=== PATIENT | male | born 2000 | race Caucasian/White ===

== ENCOUNTER 2022-11-09 00:21 | Emergency (ER) | payer SELFPAY ==
[~2022-11-09] VITALS: Ht 177.8 cm; Wt 61.2 kg
--- NOTE | 2022-11-09 00:51 | NUR ---
seen and examined by Dr. Dow
[2022-11-09] MEDS ORDERED: IBUPROFEN 600 MG TABLET PO ONE (01:00)
[2022-11-09] MEDS ORDERED: IBUPROFEN 600 MG TABLET ONE (01:12)
--- NOTE | 2022-11-09 01:14 | NUR ---
Ct in process
[2022-11-09 01:15] LABS: *BILIRUBIN,URIN NEGATIVE (NEGATIVE); *BLOOD, URINE NEGATIVE (NEGATIVE); *CLARITY,URINE CLEAR (CLEAR); *COLOR,URINE YELLOW (YELLOW); *KETONES,URINE NEGATIVE (NEGATIVE); LEUKOCYTE ESTERASE ,URINE NEGATIVE (NEGATIVE); NITRITE, URINE NEGATIVE (NEGATIVE); UGLUCOSE NEGATIVE (NEGATIVE)
[2022-11-09 01:17] LABS: HEMATOCRIT 36.8 % (36.7-47.1); PLATELET COUNT (AUTO) 492 K/uL (152-348)
[2022-11-09 01:25] LABS: POTASSIUM 3.6 mmol/L (3.5-5.1)
[2022-11-09 01:45] LABS: BILIRUBIN,TOTAL 0.4 mg/dL (0.2-1.0); TOTAL PROTEIN, SERUM 7.3 g/dL (6.4-8.2)
[2022-11-09] MEDS ORDERED: AZIT250T13 PO (03:30)
[2022-11-09] MEDS ORDERED: AZITHROMYCIN 250 MG TABLET PO ONE (03:30)
[2022-11-09] MEDS ORDERED: AZITHROMYCIN 250 MG TABLET ONE (03:33)
[2022-11-09 03:38] VITALS: BP 120/80
--- NOTE | 2022-11-09 03:38 | NUR ---
Patient discharged to home in stable condition. Written and verbal after care instructions given. Patient verbalizes understanding of instructions. Stressed follow up or return to ER for worsening s/s.
== END 2022-11-09 04:01 | disposition home or self-care (01) ==
LOC: ER 00:34
DX: J18.9 Pneumonia, unspecified organism (principal); R10.9 Unspecified abdominal pain
CPT/HCPCS: 36415; 71046; 83690; 85025; A4663; Q0144